=== PATIENT | female | born 1990 | race Caucasian/White ===

== ENCOUNTER 2016-12-20 14:12 | Observation (INO) | payer MEDICARE ==
[2016-12-20 14:49] LABS: HEMOGLOBIN 10.5 gm/dl (12.3-15.3); RED BLOOD COUNT 3.81 M/UL (4.00-5.10); WHITE BLOOD COUNT 11.5 K/UL (4.5-11.0)
[2016-12-20 15:24] LABS: BUN/CREATININE RATIO 17 (0-10)
== END 2016-12-20 19:32 | disposition home or self-care (01) ==
LOC: GENOP 14:12 → OB 14:27
PROVIDERS: ADMIT Obstetrics & Gynecology
DX: O21.9 Vomiting of pregnancy, unspecified (principal); E86.0 Dehydration; Z3A.31 31 weeks gestation of pregnancy; Z79.899 Other long term (current) drug therapy
CPT/HCPCS: 59025; 80053; 82150; 83690; 85025; 96360; 96361; 96374; G0378; J2405; J7120

== ENCOUNTER 2016-12-22 14:15 | Outpatient (CLI) | payer MEDICARE | END 2016-12-22 16:04 | disposition home or self-care (01) | LOC: GENOP 14:15 | DX: O36.8130 Decreased fetal movements, third trimester, not applicable or unspecified (principal); Z3A.31 31 weeks gestation of pregnancy | CPT/HCPCS: 59025; 81001; 87081; 87880 ==

== ENCOUNTER 2017-01-26 22:12 | Inpatient (IN) | payer MEDICARE ==
[~2017-01-26] VITALS: Ht 152.4 cm; Wt 68.9 kg
[2017-01-26 23:12] LABS: HEMOGLOBIN 9.7 gm/dl (12.3-15.3); RED BLOOD COUNT 3.67 M/UL (4.00-5.10); WHITE BLOOD COUNT 12.7 K/UL (4.5-11.0)
[2017-01-28 06:15] LABS: HEMOGLOBIN 8.9 gm/dl (12.3-15.3)
[2017-01-29] MEDS ORDERED: COLACE 100MG C100 MG PO (15:29)
== END 2017-01-29 16:05 | disposition home or self-care (01) | DRG 775 ==
LOC: GENOP 22:12 → OB 23:03
PROVIDERS: ADMIT Obstetrics & Gynecology
PROC: 10907ZC Drainage of Amniotic Fluid, Therapeutic from Products of Conception, Via Natural or Artificial Opening (ICD-10-PCS; principal; 2017-01-27)
PROC: 10H07YZ Insertion of Other Device into Products of Conception, Via Natural or Artificial Opening (ICD-10-PCS; principal; 2017-01-27)
PROC: 4A1H7CZ Monitoring of Products of Conception, Cardiac Rate, Via Natural or Artificial Opening (ICD-10-PCS; principal; 2017-01-27)
PROC: 3E033VJ Introduction of Other Hormone into Peripheral Vein, Percutaneous Approach (ICD-10-PCS; principal; 2017-01-27)
PROC: 10E0XZZ Delivery of Products of Conception, External Approach (ICD-10-PCS; principal; 2017-01-27)
PROC: 3E0234Z Introduction of Serum, Toxoid and Vaccine into Muscle, Percutaneous Approach (ICD-10-PCS; 2017-01-29)
DX: O14.14 Severe pre-eclampsia complicating childbirth (principal); O13.4 Gestational [pregnancy-induced] hypertension without significant proteinuria, complicating childbirth; O75.89 Other specified complications of labor and delivery; R10.11 Right upper quadrant pain; Z3A.37 37 weeks gestation of pregnancy; Z37.0 Single live birth; K64.9 Unspecified hemorrhoids; Z23 Encounter for immunization
CPT/HCPCS: 36415; 51702; 81001; 82800; 83735; 85014; 85018; 85025; 90707; 90715; J0360; J2405; J2590; J2795; J3010; J3430; J3475; J7120

== ENCOUNTER 2021-03-28 16:04 | Emergency (ER) | payer OTHER ==
[~2021-03-28 16:04] MED LIST: AUGMENTIN 875-1 EACH PO; COLACE 100MG C100 MG PO; DIFLUCAN150 MG PO; KEFLEX CAP 500500 MG PO; NORCO 5-325 TA1 EACH PO
[2021-03-28 16:43] LABS: HEMOGLOBIN 12.7 gm/dl (12.3-15.3); RED BLOOD COUNT 4.24 M/UL (4.00-5.10); WHITE BLOOD COUNT 9.7 K/UL (4.5-11.0)
[2021-03-28 17:12] LABS: BUN/CREATININE RATIO 13 (0-10)
== END 2021-03-28 18:07 | disposition home or self-care (01) ==
LOC: ER1 16:04
PROVIDERS: Emergency Medicine
DX: O21.0 Mild hyperemesis gravidarum (principal); Z3A.16 16 weeks gestation of pregnancy
CPT/HCPCS: 80053; 81001; 82550; 82553; 83874; 84484; 84702; 85025; 93005; 99284; J7030

== ENCOUNTER 2021-04-16 11:28 | Observation (INO) | payer OTHER ==
[~2021-04-16] VITALS: Ht 152.4 cm; Wt 68.0 kg
[2021-04-16 12:36] LABS: HEMOGLOBIN 12.4 gm/dl (12.3-15.3); RED BLOOD COUNT 4.15 M/UL (4.00-5.10); WHITE BLOOD COUNT 8.5 K/UL (4.5-11.0)
[2021-04-16 13:02] LABS: BUN/CREATININE RATIO 14 (0-10)
[2021-04-16] MEDS ORDERED: PRENATAL MULTI1 EAC5 PO (23:26)
[2021-04-17 03:24] LABS: HEMOGLOBIN 10.5 gm/dl (12.3-15.3)
[2021-04-17 03:28] LABS: RED BLOOD COUNT 3.57 M/UL (4.00-5.10); WHITE BLOOD COUNT 5.6 K/UL (4.5-11.0)
[2021-04-17 03:47] LABS: BUN/CREATININE RATIO 11 (0-10)
[2021-04-17] MEDS ORDERED: ONDANSETRON ODT8 MG PO (12:37)
[2021-04-17] MEDS ORDERED: CEPHALEXIN500 MG PO (12:37)
--- NOTE | 2021-04-17 14:34 | NUR ---
patient reports of tolerating meals. denies nausea and vomiting
== END 2021-04-17 14:55 | disposition home or self-care (01) ==
LOC: ER1 11:28 → M/S 14:03 → CDU 14:03 → M/S 21:01
PROVIDERS: Emergency Medicine; ADMIT Obstetrics & Gynecology
DX: O98.512 Other viral diseases complicating pregnancy, second trimester (principal); U07.1 COVID-19; O21.0 Mild hyperemesis gravidarum; O23.42 Unspecified infection of urinary tract in pregnancy, second trimester; Z3A.17 17 weeks gestation of pregnancy
CPT/HCPCS: 36415; 80053; 81001; 85025; 87086; 96374; 99284; G0378; J0696; J2405; J2550; J7030; U0002

== ENCOUNTER 2021-07-23 20:24 | Outpatient (CLI) | payer OTHER ==
[~2021-07-23 20:24] MED LIST changes: +CEPHALEXIN500 MG PO; +ONDANSETRON ODT8 MG PO; +PRENATAL MULTI1 EAC5 PO
== END 2021-07-23 22:35 | disposition home or self-care (01) ==
LOC: GENOP 20:24
DX: O47.03 False labor before 37 completed weeks of gestation, third trimester (principal); O16.3 Unspecified maternal hypertension, third trimester; Z3A.32 32 weeks gestation of pregnancy
CPT/HCPCS: 81001; 82731; 87210; 96372; J0702

== ENCOUNTER 2021-09-06 16:50 | Inpatient (IN) | payer OTHER ==
[~2021-09-06] VITALS: Ht 152.4 cm; Wt 69.4 kg
[2021-09-06 18:42] LABS: HEMOGLOBIN 10.7 gm/dl (12.3-15.3); RED BLOOD COUNT 3.55 M/UL (4.00-5.10); WHITE BLOOD COUNT 12.7 K/UL (4.5-11.0)
[2021-09-06 19:27] LABS: BUN/CREATININE RATIO 11 (0-10)
[2021-09-07] MEDS ORDERED: IBUPROFEN600 MG PO (14:48)
[2021-09-07] MEDS ORDERED: DOCUSATE SODIU100 MG PO (14:48)
[2021-09-08 02:04] LABS: HEMOGLOBIN 9.4 gm/dl (12.3-15.3)
[2021-09-09] MEDS ORDERED: LABETALOL HCL200 MG PO (10:53)
== END 2021-09-09 12:50 | disposition home or self-care (01) | DRG 806 ==
LOC: GENOP 16:50 → OB 17:48
PROVIDERS: ADMIT Obstetrics & Gynecology
PROC: 10E0XZZ Delivery of Products of Conception, External Approach (ICD-10-PCS; principal; 2021-09-07)
PROC: 10907ZC Drainage of Amniotic Fluid, Therapeutic from Products of Conception, Via Natural or Artificial Opening (ICD-10-PCS; 2021-09-07)
PROC: 3E033VJ Introduction of Other Hormone into Peripheral Vein, Percutaneous Approach (ICD-10-PCS; 2021-09-07)
PROC: 4A1H8CZ Monitoring of Products of Conception, Cardiac Rate, Via Natural or Artificial Opening Endoscopic (ICD-10-PCS; 2021-09-07)
PROC: 10H073Z Insertion of Monitoring Electrode into Products of Conception, Via Natural or Artificial Opening (ICD-10-PCS; 2021-09-07)
PROC: 0HQ9XZZ Repair Perineum Skin, External Approach (ICD-10-PCS; 2021-09-07)
PROC: 0UQMXZZ Repair Vulva, External Approach (ICD-10-PCS; 2021-09-07)
PROC: 10H07YZ Insertion of Other Device into Products of Conception, Via Natural or Artificial Opening (ICD-10-PCS; 2021-09-07)
DX: O13.4 Gestational [pregnancy-induced] hypertension without significant proteinuria, complicating childbirth (principal); O99.354 Diseases of the nervous system complicating childbirth; R51.9 Headache, unspecified; O70.0 First degree perineal laceration during delivery; Z20.822 Contact with and (suspected) exposure to COVID-19; O14.94 Unspecified pre-eclampsia, complicating childbirth; Z37.0 Single live birth; Z3A.37 37 weeks gestation of pregnancy
CPT/HCPCS: 36415; 80053; 81001; 82570; 82800; 83615; 83735; 84156; 84550; 85014; 85018; 85025; J0610; J2405; J2590; J3475; J7120; U0002